=== PATIENT | male | born 1995 | race Caucasian/White ===

== ENCOUNTER 2021-11-30 00:23 | Emergency (ER) | payer BC ==
[2021-11-30 01:20] LABS: Basophil (Absolute #) 0.06 x10^3/uL (0-0.4); Eosinophil (Absolute #) 0.13 x10^3/uL (0-0.5); Hematocrit 41.8 % (42-50); Hemoglobin 13.9 g/dL (12.5-18.0); Lymphocyte (Absolute #) 1.67 x10^3/uL (1.0-4.6); Lymphocytes % 12.4 % (24.0-44.0); Mean Cell Volume 87.3 fL (78-100); Mean Corpuscular Hgb Concent. 33.3 g/dL (32-36); Mean Platelet Volume 10.6 fL (7.5-11.0); Monocyte (Absolute #) 1.02 x10^3/uL (0.0-1.3); Monocytes % 7.5 % (0.0-12.0); Neutrophil % 77.7 % (36.0-66.0); Platelet Count 201 x10^3/uL (150-450); Red Blood Count 4.79 x10^6/uL (4.1-5.6); Red Cell Distribution Width 12.7 % (11.5-14.0); White Blood Count 13.5 x10^3/uL (4.0-10.5)
[2021-11-30 01:32] LABS: ALBUMIN 3.9 g/dL (3.5-5.0); ALKALINE PHOSPHATASE 77 U/L (38-126); ANION GAP 12.3 MEQ/L (5-15); BLOOD UREA NITROGEN 18 mg/dL (9-20); CHLORIDE 102 mmol/L (98-107); Calcium 8.6 mg/dL (8.4-10.2); Carbon Dioxide 24 mmol/L (22-30); Creatinine 1 1.07 mg/dL (0.66-1.25); EST GLOMERULAR FILTRATION RATE > 60.0 ML/MIN; Glucose 116 mg/dL (74-106); Potassium 3.6 mmol/L (3.5-5.1); SGOT/AST 40 U/L (17-59); SGPT/ALT 46 U/L (0-50); SODIUM 135 mmol/L (137-145); Total Protein 6.9 g/dL (6.3-8.2)
[2021-11-30] MEDS ORDERED: SUBLIMAZE 100 MCG/2 ML IV ONE (01:41)
[2021-11-30] MEDS ORDERED: Zofran 4 MG/2 ML VIAL IV ONE (01:42)
[2021-11-30] MEDS ORDERED: Zofran 4 MG/2 ML VIAL ONE (02:03)
[2021-11-30] MEDS ORDERED: SUBLIMAZE 100 MCG/2 ML ONE (02:03)
--- NOTE | 2021-11-30 02:26 | ERPHSYRPT ---
- History of Present Illness Source: patient Exam Limitations: no limitations Patient Subjective Stated Complaint: C/O left thigh pain. States he thinks his surgical incision is infected/ C/O fever. Triage Nursing Assessment: Patient ambulated back to ED. Coban wrapping noted to LLE from the knee down. Patient instructed not to remove this until follow-up appointment on Wednesday. A mepilex border dressing noted to left inner thigh. Dressing removed to examine. 4 marj intact to area and incision is well approximated. No drainage noted. Surrounding skin is red, warm, and swollen. Physician History: 25 yo wm s/p vein occlusive procedure by Dr. Rosales on 10/31/21 L thigh presents w increasing edema/erythema/fever x 2-3 days. Pt presented to surgery center yesterday for L lower leg venous stripping and had L superior thigh I/D in surgery before venous stripping of that lower extremity. He is on Keflex at this time. Method of Injury: other (Post surgical) Occurred: other (2-3 days) Quality: constant, aching Severity of Pain-Max: moderate Severity of Pain-Current: moderate Lower Extremities Pain: thigh: left Modifying Factors: Improves With: movement Associated Symptoms: none Allergies/Adverse Reactions: No Known Drug Allergies Allergy (Verified 11/30/21 00:37) Home Medications: Cephalexin Mh 500 mg [Keflex 500 mg] 1 cap PO TID 11/30/21 [History] Hx Tetanus, Diphtheria Vaccination/Date Given: Yes Hx Influenza Vaccination/Date Given: No Hx Pneumococcal Vaccination/Date Given: No Immunizations Up to Date: Yes Travel Risk - International Travel Have you traveled outside of the country in past 3 weeks: No - Coronavirus Screening Are you exhibiting any of the following symptoms?: No - Vaccine Status Have you recieved a Covid-19 vaccination: No - Review of Systems Constitutional: No Symptoms, Fever Eyes: No Symptoms Ears, Nose, & Throat: No Symptoms Respiratory: No Symptoms Cardiac: No Symptoms Abdominal/Gastrointestinal: No Symptoms Genitourinary Symptoms: No Symptoms Musculoskeletal: No Symptoms Skin: Cellulitis Neurological: No Symptoms Psychological: No Symptoms Endocrine: No Symptoms Hematologic/Lymphatic: No Symptoms Immunological/Allergic: No Symptoms - Past Medical History Pertinent Past Medical History: Yes Other Medical History: Veric. veins - Past Surgical History Past Surgical History: Yes Other Surgical History: Varic. veins to LLE, I&D to left inner thigh - Social History Smoking Status: Never smoker Exposure to second hand smoke: No Drug Use: none Patient Lives Alone: No Significant Family History: no pertinent family hx - Nursing Vital Signs Nursing Vital Signs: Initial Vital Signs Temperature 101.4 F 11/30/21 00:41 Pulse Rate 90 11/30/21 00:41 Respiratory Rate 17 11/30/21 00:41 Blood Pressure 148/86 11/30/21 00:41 O2 Sat by Pulse Oximetry 97 11/30/21 00:41 Pain Scale Pain Intensity 6 Febrile/Hypertensive - Physical Exam General Appearance: no apparent distress Eyes, Ears, Nose, Throat Exam: normal ENT inspection, TMs normal, pharynx normal, moist mucous membranes Neck Exam: normal inspection, non-tender, supple, full range of motion, No Brudzinski, No Kernig's, No meningismus, No carotid bruit Cardiovascular/Respiratory Exam: normal breath sounds, regular rate/rhythm, heart sounds normal Gastrointestinal/Abdominal Exam: non-tender, soft, no organomegaly Back Exam: normal inspection, normal range of motion Hips Exam: bilateral: non-tender, normal inspection, normal range of motion Legs Exam: left leg: soft tissue tenderness (L medial thigh/marj in place/edema, erythema, and TTP/L calf surgical sites clean, dry, and intact/Good pedal pulses, distal sendation, and capillary return) Knees Exam: bilateral knee: non-tender, normal inspection, normal range of mo tion, no evidence of injury Ankle Exam: bilateral ankle: non-tender, normal inspection, normal range of motion Foot Exam: bilateral foot: non-tender, normal inspection, normal range of motion, no evidence of injury Neuro/Tendon Exam: normal sensation, normal motor functions, normal tendon functions, responds to pain, no evidence tendon injury, motor deficit, withdraws to pain, No sensory deficit, No no response to pain Mental Status Exam: alert, oriented x 3, cooperative Skin Exam: other (Cellulitis L nedial thigh) SpO2 Interpretation: normal SpO2: 97 - Course Nursing assessment & vital signs reviewed: Yes - Radiology Ultrasound Exam Venous Lower Extremity Ultrasound: Other (LLE neg for DVT/Lymph nodes L groin) Ordered Tests: Medication Summary Discontinued Medications Generic Name Dose Route Start Last Admin Trade Name Freq PRN Reason Stop Dose Admin Hydrocodone Bitart/Acetaminophen 1 tablet 11/30/21 03:33 11/30/21 04:17 Hydrocodone/Acetamin 10-325 Mg Tablet PO 11/30/21 03:34 1 tablet STAT ONE Administration Doxycycline Hyclate 100 mg 11/30/21 03:20 11/30/21 03:23 Doxycycline Hyclate 100 Mg Tablet PO 11/30/21 03:21 100 mg STAT ONE Administration Doxycycline Hyclate Confirm 11/30/21 03:22 Doxycycline Hyclate 100 Mg Tablet Administered 11/30/21 03:23 Dose 100 mg .ROUTE .STK-MED ONE Fentanyl Citrate 100 mcg 11/30/21 01:41 11/30/21 02:13 Fentanyl Citrate 100 Mcg/2 Ml* Vial IV 11/30/21 01:42 100 mcg STAT ONE Administration Fentanyl Citrate Confirm 11/30/21 02:03 Fentanyl Citrate 100 Mcg/2 Ml* Vial Administered 11/30/21 02:04 Dose 100 mcg .ROUTE .STK-MED ONE Vancomycin HCl Confirm 11/30/21 02:49 Vancomycin 1 Gram/200 Ml Bag Administered 11/30/21 02:50 Dose 1 gm in 200 mls @ ud IV .STK-MED ONE Vancomycin HCl 1 gm in 200 mls @ 125 mls/hr 11/30/21 02:49 11/30/21 04:39 Vancomycin 1 Gram/200 Ml Bag IV 11/30/21 04:24 Infused ONCE ONE Infusion Ondansetron HCl 4 mg 11/30/21 01:42 11/30/21 02:13 Ondansetron Hcl 4 Mg/2 Ml Vial IV 11/30/21 01:43 4 mg STAT ONE Administration Ondansetron HCl Confirm 11/30/21 02:03 Ondansetron Hcl 4 Mg/2 Ml Vial Administered 11/30/21 02:04 Dose 4 mg .ROUTE .STK-MED ONE Lab/Rad Data: Laboratory Result Diagrams 11/30/21 01:18 11/30/21 01:18 Laboratory Results 11/30/21 11/30/21 11/30/21 Range/Units 01:35 01:18 01:18 WBC 13.5 H (4.0-10.5) x10^3/uL RBC 4.79 (4.1-5.6) x10^6/uL Hgb 13.9 (12.5-18.0) g/dL Hct 41.8 L (42-50) % MCV 87.3 (78-100) fL MCH 29.0 (26-32) pg MCHC 33.3 (32-36) g/dL RDW 12.7 (11.5-14.0) % Plt Count 201 (150-450) x10^3/uL MPV 10.6 (7.5-11.0) fL Gran % 77.7 H (36.0-66.0) % Immature Gran % (Auto) 1.0 H (0.00-0.4) % Nucleat RBC Rel Count 0.0 (0.00-0.1) % Eos # (Auto) 0.13 (0-0.5) x10^3/uL Immature Gran # (Auto) 0.14 H (0.00-0.03) x10^3u/L Absolute Lymphs (auto) 1.67 (1.0-4.6) x10^3/uL Absolute Monos (auto) 1.02 (0.0-1.3) x10^3/uL Absolute Nucleated RBC 0.00 (0.00-0.01) x10^3u/L Lymphocytes % 12.4 L (24.0-44.0) % Monocytes % 7.5 (0.0-12.0) % Eosinophils % 1.0 (0.00-5.0) % Basophils % 0.4 (0.0-0.4) % Absolute Granulocytes 10.50 H (1.4-6.9) x10^3/uL Basophils # 0.06 (0-0.4) x10^3/uL Sodium 135 L (137-145) mmol/L Potassium 3.6 (3.5-5.1) mmol/L Chloride 102 (98-107) mmol/L Carbon Dioxide 24 (22-30) mmol/L Anion Gap 12.3 (5-15) MEQ/L BUN 18 (9-20) mg/dL Creatinine 1.07 (0.66-1.25) mg/dL Estimated GFR > 60.0 ML/MIN Glucose 116 H (74-106) mg/dL Lactic Acid 0.8 (0.4-2.0) Calcium 8.6 (8.4-10.2) mg/dL Total Bilirubin 0.40 (0.2-1.3) mg/dL AST 40 (17-59) U/L ALT 46 (0-50) U/L Alkaline Phosphatase 77 (38-126) U/L Serum Total Protein 6.9 (6.3-8.2) g/dL Albumin 3.9 (3.5-5.0) g/dL - Progress Progress Note: 11/30/21 03:[address] Rosales x2 Blood culture x1 Vancomycin 1gm IV x1 Spoke to Dr. Ferreira about admit, wants pt to be transferred where Dr. Rosalse practices Pt refuses transfer to [facility] where Dr. 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 He wants to be discharged at this time and will go to [facility] if he gets worse. Pt understands the risk that he will need to be hospitalized tomorrow and that cellulitis could get worse with possible risk of sepsis. 100mg po Doxycycline 12/03/21 07:27 Counseled pt/family regarding: lab results, diagnosis, need for follow-up, rad results - Departure Departure Disposition: Home Clinical Impression: Cellulitis Condition: Stable Critical Care Time: No Referrals: MELISSA NAIR [Primary Care Provider] - Follow up/PCP as directed Instructions: Wound Care (DC), Cellulitis (Skin Infection), Adult ED Additional Instructions: Continue with Keflex and continue with Doxycycline If redness, swelling, or pain gets worse, go to [facility] Prescriptions: Hydrocodone/Acetaminophen [Hydrocodone-Acetamin 5-325 mg] 1 tab PO Q6HPRN PRN #8 tablet MDD 4 PRN Reason: Pain
[2021-11-30] MEDS ORDERED: VANCOMYCIN 1 GRAM/200 ML BAG 1 GM/200 ML PIGGYBACK IV ONE ×2 (02:49)
[2021-11-30] MEDS ORDERED: Vibramycin 100 MG PO ONE (03:20)
[2021-11-30] MEDS ORDERED: Vibramycin 100 MG ONE (03:22)
[2021-11-30 03:28] VITALS: O2SAT 97
[2021-11-30] MEDS ORDERED: HYDROCODONE-ACETAMIN 10-325 MG PO ONE (03:33)
[2021-11-30 04:42] VITALS: BP 120/70; PULSE 80
--- NOTE | 2021-11-30 07:19 | XRAY ---
Indication: Left leg pain. Two-dimensional sonogram and color Doppler imaging of the major venous vessels of the left leg performed. Comparison: None No thrombus seen in the examined deep venous vessels of the left leg including greater saphenous vein. Veins demonstrate normal compressibility. Venous waveforms are normal with and without augmentation. Groin demonstrates 1.5 x 0.6 cm benign appearing lymph node. Impression: Left leg negative for DVT. Comment: Preliminary report given.
--- NOTE | 2021-11-30 07:19 | XRAY ---
Indication: Erythema and swelling around incision. Targeted soft tissue ultrasound medial left thigh demonstrates mild subcutaneous soft tissue edema. No focal solid/cystic mass, lymphadenopathy, or abnormal fluid collection. Comment: Preliminary report was given.
== END 2021-11-30 04:43 | disposition home or self-care (01) ==
LOC: ED 00:23
DX: L03.116 Cellulitis of left lower limb (principal); L76.82 Other postprocedural complications of skin and subcutaneous tissue; M79.605 Pain in left leg; Z28.310 Unvaccinated for COVID-19
CPT/HCPCS: 36000; 36415; 76881; 80053; 83605; 85025; 87040; 93971; 96365; 96372; 96374; 99284; J2405; J3010; A9270-GY; J3370

== ENCOUNTER 2023-05-07 13:00 | Emergency (ER) | payer BC ==
[2023-05-07 13:07] VITALS: TEMP 97.4
--- NOTE | 2023-05-07 13:10 | ERPHSYRPT ---
- History of Present Illness Time Seen by Provider: 05/07/23 13:10 Historian: patient, family Exam Limitations: no limitations Patient Subjective Stated Complaint: Pt c/o o intermittant chest pain that began today Triage Nursing Assessment: Pt brought self to the ER, hypertensive, rates pain as 1-2/10 in his left chest, pulses normal, skin n/w/d, denies N&V, no difficulty breathing, walked into the ER room with no difficulties, doesn't appear to be in any distress Physician History: This is a 27-year-old overweight white male patient who himself has no documented history of coronary disease but there is a strong family history of it. While [place] [employer], he noticed intermittent left lateral upper chest achiness that was without radiation. Patient takes no prescription medications chronically, however, he does try to take fish oil with every meal because he was told at one time he had elevated cholesterol. Patient does not smoke. He denies shortness of breath. He has not had fevers, chills or cough. He has no abdominal pain. At the time of my examination, patient states he has no chest pain whatsoever. Patient did take a full baby aspirin prior to arrival when he noticed the chest pain as described above. Timing/Duration: today Activities at Onset: activity Quality: aching Location: other (Left anterior upper outer chest wall) Chest Pain Radiation: no radiation Severity of Pain-Max: mild (To moderate) Severity of Pain-Current: none Modifying Factors: Improves With: nothing Associated Symptoms: denies symptoms Prior Chest Pain/Cardiac Workup: no prior chest pain Nitro Today/Relief: no nitro taken today Aspirin Treatment Today: 81 mg x 4, provided at home Allergies/Adverse Reactions: No Known Drug Allergies Allergy (Verified 05/07/23 13:07) Home Medications: No Reportable Medications [No Reported Medications] 05/07/23 [History] Hx Tetanus, Diphtheria Vaccination/Date Given: Yes Hx Influenza Vaccination/Date Given: No Hx Pneumococcal Vaccination/Date Given: No Travel Risk - International Travel Have you traveled outside of the country in past 3 weeks: No - Coronavirus Screening Are you exhibiting any of the following symptoms?: No Close contact with a COVID-19 positive Pt in past 14-21 Days: No - Vaccine Status Have you recieved a Covid-19 vaccination: No - Review of Systems Constitutional: No Symptoms Eyes: No Symptoms Ears, Nose, & Throat: No Symptoms Respiratory: No Symptoms Cardiac: Chest Pain (Completely resolved at the time of this examination) Abdominal/Gastrointestinal: No Symptoms Genitourinary Symptoms: No Symptoms Musculoskeletal: No Symptoms Skin: No Symptoms Neurological: No Symptoms Psychological: No Symptoms Endocrine: No Symptoms Hematologic/Lymphatic: No Symptoms Immunological/Allergic: No Symptoms All Other Systems: Reviewed and Negative - Past Medical History Pertinent Past Medical History: Yes Other Medical History: Veric. veins - Past Surgical History Past Surgical History: Yes Other Surgical History: Varic. veins to LLE, I&D to left inner thigh - Social History Smoking Status: Never smoker Exposure to second hand smoke: No Drug Use: none Patient Lives Alone: No Significant Family History: no pertinent family hx - Nursing Vital Signs Nursing Vital Signs: Initial Vital Signs Temperature 97.4 F 05/07/23 13:01 Pulse Rate 93 H 05/07/23 13:01 Respiratory Rate 25 H 05/07/23 13:01 Blood Pressure 146/103 05/07/23 13:01 O2 Sat by Pulse Oximetry 96 05/07/23 13:01 Pain Scale Pain Intensity 2 - Physical Exam General Appearance: no apparent distress, alert, anxiety, obese Eye Exam: PERRL/EOMI, eyes nml inspection Ears, Nose, Throat Exam: normal ENT inspection, moist mucous membranes Neck Exam: normal inspection, non-tender, supple, full range of motion Respiratory Exam: normal breath sounds, lungs clear, airway intact, No chest tenderness, No respiratory distress Cardiovascular Exam: regular rate/rhythm, normal heart sounds, normal peripheral pulses Gastrointestinal/Abdomen Exam: soft, normal bowel sounds, No tenderness Rectal Exam: not done Back Exam: normal inspection, normal range of motion, No CVA tenderness, No vertebral tenderness Extremity Exam: normal inspection, normal range of motion, pelvis stable Neurologic Exam: alert, oriented x 3, cooperative, furniture restorer II-XII nml as tested, normal mood/affect, nml cerebellar function, nml station & gait, sensation nml Skin Exam: normal color, warm, dry Lymphatic Exam: No adenopathy SpO2 Interpretation: normal SpO2: 96 O2 Delivery: Room Air - Course Nursing assessment & vital signs reviewed: Yes EKG Interpreted by Me: RATE (95), Sinus Rhythm, NORMAL AXIS, NORMAL INTERVALS, NORMAL QRS, NORMAL ST-T (No acute ischemic changes on today's twelve-lead EKG), Other Ordered Tests: Active Orders 24 hr Category Date Time Status Corporate Travel Agent STAT Care 05/07/23 13:12 Active EKG-ER Only STAT Care 05/07/23 13:12 Active CBC W DIFF Stat Lab 05/07/23 13:25 Completed CMP Stat Lab 05/07/23 13:25 Completed D-DIMER QUANTITATIVE Stat Lab 05/07/23 13:25 Completed TROPONIN Q4H Lab 05/07/23 13:25 Completed TROPONIN Q4H Lab 05/07/23 17:15 Ordered TROPONIN Q4H Lab 05/07/23 21:15 Ordered Medication Summary Discontinued Medications Generic Name Dose Route Start Last Admin Trade Name Freq PRN Reason Stop Dose Admin Aspirin 324 mg 05/07/23 13:12 05/07/23 13:15 Aspirin 81 Mg Tab.Chew PO 05/07/23 13:13 Not Given STAT ONE Lab/Rad Data: Laboratory Result Diagrams 05/07/23 13:25 05/07/23 13:25 Laboratory Results 05/07/23 05/07/23 05/07/23 Range/Units 13:25 13:25 13:25 WBC (4.0-10.5) x10^3/uL RBC (4.1-5.6) x10^6/uL Hgb (12.5-18.0) g/dL Hct (42-50) % MCV (78-100) fL MCH (26-32) pg MCHC (32-36) g/dL RDW (11.5-14.0) % Plt Count (150-450) x10^3/uL MPV (7.5-11.0) fL Gran % (36.0-66.0) % Immature Gran % (Auto) (0.00-0.4) % Nucleat RBC Rel Count (0.00-0.1) % Eos # (Auto) (0-0.5) x10^3/uL Immature Gran # (Auto) (0.00-0.03) x10^3u/L Absolute Lymphs (auto) (1.0-4.6) x10^3/uL Absolute Monos (auto) (0.0-1.3) x10^3/uL Absolute Nucleated RBC (0.00-0.01) x10^3u/L Lymphocytes % (24.0-44.0) % Monocytes % (0.0-12.0) % Eosinophils % (0.00-5.0) % Basophils % (0.0-0.4) % Absolute Granulocytes (1.4-6.9) x10^3/uL Basophils # (0-0.4) x10^3/uL D-Dimer < 0.19 (0.0-0.50) mg/L Sodium 137 (137-145) mmol/L Potassium 3.9 (3.5-5.1) mmol/L Chloride 103 (98-107) mmol/L Carbon Dioxide 26 (22-30) mmol/L Anion Gap 12.4 (5-15) MEQ/L BUN 23 H (9-20) mg/dL Creatinine 1.16 (0.66-1.25) mg/dL Estimated GFR 88.0 ML/MIN Glucose 99 (74-106) mg/dL Calcium 9.1 (8.4-10.2) mg/dL Total Bilirubin 0.70 (0.2-1.3) mg/dL AST 67 H (17-59) U/L ALT 113 H (0-50) U/L Alkaline Phosphatase 73 (38-126) U/L Troponin I < 0.012 (0.000-0.034) ng/mL Serum Total Protein 7.8 (6.3-8.2) g/dL Albumin 4.6 (3.5-5.0) g/dL 05/07/23 Range/Units 13:25 WBC 7.8 (4.0-10.5) x10^3/uL RBC 5.66 H (4.1-5.6) x10^6/uL Hgb 16.4 (12.5-18.0) g/dL Hct 47.8 (42-50) % MCV 84.5 (78-100) fL MCH 29.0 (26-32) pg MCHC 34.3 (32-36) g/dL RDW 12.4 (11.5-14.0) % Plt Count 220 (150-450) x10^3/uL MPV 11.2 H (7.5-11.0) fL Gran % 63.8 (36.0-66.0) % Immature Gran % (Auto) 0.5 H (0.00-0.4) % Nucleat RBC Rel Count 0.0 (0.00-0.1) % Eos # (Auto) 0.11 (0-0.5) x10^3/uL Immature Gran # (Auto) 0.04 H (0.00-0.03) x10^3u/L Absolute Lymphs (auto) 2.12 (1.0-4.6) x10^3/uL Absolute Monos (auto) 0.50 (0.0-1.3) x10^3/uL Absolute Nucleated RBC 0.00 (0.00-0.01) x10^3u/L Lymphocytes % 27.1 (24.0-44.0) % Monocytes % 6.4 (0.0-12.0) % Eosinophils % 1.4 (0.00-5.0) % Basophils % 0.8 (0.0-0.4) % Absolute Granulocytes 5.00 (1.4-6.9) x10^3/uL Basophils # 0.06 (0-0.4) x10^3/uL D-Dimer (0.0-0.50) mg/L Sodium (137-145) mmol/L Potassium (3.5-5.1) mmol/L Chloride (98-107) mmol/L Carbon Dioxide (22-30) mmol/L Anion Gap (5-15) MEQ/L BUN (9-20) mg/dL Creatinine (0.66-1.25) mg/dL Estimated GFR ML/MIN Glucose (74-106) mg/dL Calcium (8.4-10.2) mg/dL Total Bilirubin (0.2-1.3) mg/dL AST (17-59) U/L ALT (0-50) U/L Alkaline Phosphatase (38-126) U/L Troponin I (0.000-0.034) ng/mL Serum Total Protein (6.3-8.2) g/dL Albumin (3.5-5.0) g/dL - Progress Progress: improved Air Movement: good Progress Note: 05/07/23 14:17 This patient's medical issue is 1 of moderate complexity. Level complex in the workup performed is based on review of the patient's past medical history, shayne w the patient's medication list, review of the patient's drug allergy list, history present illness and physical findings on examination. The workup in this patient includes twelve-lead EKG, CBC, CMP, D-dimer level, troponin level. I reviewed and interpreted the patient's twelve-lead EKG and laboratory data results. There are no acute, emergent findings on patient's laboratory studies or twelve-lead EKG today. Patient heart score is low. There is low suspicion that patient has a cardiac issue. Patient will be discharged to home. Blood Culture(s) Obtained: No Antibiotics given: No Counseled pt/family regarding: lab results, diagnosis, need for follow-up Medical Desision Making - Diagnostic Testing Diagnostic test were ordered, analyzed, and reviewed by me: Yes - Risk of complications Minimal Risk: Minimal risk of morbidity - Departure Departure Disposition: Home Clinical Impression: Nonspecific chest pain Condition: Stable Critical Care Time: No Referrals: MELISSA NAIR [COURTESY STAFF] - Follow up/PCP as directed Additional Instructions: Take your medications of aspirin and fish oil capsules as you have been doing. Call your primary care provider today to make arranges for follow-up appointment for further evaluation management.
[2023-05-07] MEDS ORDERED: BABY ASPIRIN 81 MG CHEW PO ONE (13:12)
[2023-05-07 13:27] LABS: BASOPHIL % 0.8 % (0.0-0.4); Basophil (Absolute #) 0.06 x10^3/uL (0-0.4); Eosinophil % 1.4 % (0.00-5.0); Eosinophil (Absolute #) 0.11 x10^3/uL (0-0.5); Hematocrit 47.8 % (42-50); Hemoglobin 16.4 g/dL (12.5-18.0); IMMATURE GRAN # 0.04 x10^3u/L (0.00-0.03); IMMATURE GRAN % 0.5 % (0.00-0.4); Lymphocyte (Absolute #) 2.12 x10^3/uL (1.0-4.6); Lymphocytes % 27.1 % (24.0-44.0); Mean Cell Volume 84.5 fL (78-100); Mean Corpuscular Hgb Concent. 34.3 g/dL (32-36); Mean Platelet Volume 11.2 fL (7.5-11.0); Monocytes % 6.4 % (0.0-12.0); Neutrophil % 63.8 % (36.0-66.0); Platelet Count 220 x10^3/uL (150-450); Red Blood Count 5.66 x10^6/uL (4.1-5.6); Red Cell Distribution Width 12.4 % (11.5-14.0); White Blood Count 7.8 x10^3/uL (4.0-10.5)
[2023-05-07 13:42] LABS: ALBUMIN 4.6 g/dL (3.5-5.0); ANION GAP 12.4 MEQ/L (5-15); BILIRUBIN,TOTAL 0.7 mg/dL (0.2-1.3); Calcium 9.1 mg/dL (8.4-10.2); Creatinine 1 1.16 mg/dL (0.66-1.25); Potassium 3.9 mmol/L (3.5-5.1); Total Protein 7.8 g/dL (6.3-8.2)
[2023-05-07 14:03] VITALS: BP 126/88; PULSE 82; RESP 14
[2023-05-07 14:19] VITALS: O2SAT 96
== END 2023-05-07 14:28 | disposition home or self-care (01) ==
LOC: ED 13:00
DX: R07.9 Chest pain, unspecified (principal); Z28.310 Unvaccinated for COVID-19
CPT/HCPCS: 36415; 80053; 84484; 85025; 85379; 93005; 93041; 99283

== ENCOUNTER 2023-12-03 21:51 | Emergency (ER) | payer BC ==
[2023-12-03 22:07] VITALS: RESP 18; TEMP 97.6
--- NOTE | 2023-12-03 22:11 | ERPHSYRPT ---
- History of Present Illness Time Seen by Provider: 12/03/23 22:11 Source: patient, family Exam Limitations: no limitations Patient Subjective Stated Complaint: pt states that he has pain to his rt foot and last 3 digits Triage Nursing Assessment: pt ambulated into the er; pt is axo x4; c/o rt foot pain; pt states 10/10 pain to rt foot; pt states pain to 3rd, 4th, 5th digits; no bruising or deformity to rt foot; strong rt pedal pulse; no swelling present to rt foot; skin PDW; no respiratory distress present; vitals wnl Physician History: This is a 27-year-old overweight white male patient who has done a lot of [place] since Wednesday prior to this evaluation. Throughout the week he has had intermittent pain in the right foot when ambulating. He describes that it is intermittent aching and throbbing. Today, the pain became more constant. Patient does not recall any specific injury only that he has increased his walking this week. Patient has no known drug allergies and takes no medications chronically. The pain is on the dorsal aspect of his right foot primarily digits 3 4 and 5 when he is ambulating. Method of Injury: unknown Occurred: other Quality: constant (Past week), aching, throbbing Severity of Pain-Max: moderate Severity of Pain-Current: moderate Lower Extremities Pain: foot: right Modifying Factors: Improves With: movement Associated Symptoms: none Allergies/Adverse Reactions: No Known Drug Allergies Allergy (Verified 05/07/23 13:07) Home Medications: No Reportable Medications [No Reported Medications] 05/07/23 [History] Hx Tetanus, Diphtheria Vaccination/Date Given: No (unsure) Hx Influenza Vaccination/Date Given: No Hx Pneumococcal Vaccination/Date Given: No Travel Risk - International Travel Have you traveled outside of the country in past 3 weeks: No - Emerging Infectious Disease Are you exhibiting symptoms associated with any current EIDs: No - Review of Systems Constitutional: No Symptoms Eyes: No Symptoms Ears, Nose, & Throat: No Symptoms Respiratory: No Symptoms Cardiac: No Symptoms Abdominal/Gastrointestinal: No Symptoms Genitourinary Symptoms: No Symptoms Musculoskeletal: Other (Right foot pain when ambulating) Skin: No Symptoms Neurological: No Symptoms Psychological: No Symptoms Endocrine: No Symptoms Hematologic/Lymphatic: No Symptoms Immunological/Allergic: No Symptoms All Other Systems: Reviewed and Negative - Past Medical History Pertinent Past Medical History: Yes Other Medical History: Veric. veins - Past Surgical History Past Surgical History: Yes Other Surgical History: Varic. veins to LLE, I&D to left inner thigh Significant Family History: no pertinent family hx - Social History Smoking Status: Never smoker Exposure to second hand smoke: No Drug Use: none Patient Lives Alone: No - Social Determinants of Health Will the patient participate in the screening: Yes Do you worry about a steady place to live?: No Do you have any problems with any of the following?: No known problems In the past 12 months,have you had to go without utilities?: No Transportation Issues: No Has anyone in your support network made you feel unsafe?: No Have you or anyone in your house had to go without enough: No - Nursing Vital Signs Nursing Vital Signs: Initial Vital Signs Temperature 97.6 F 12/03/23 21:58 Pulse Rate 101 H 12/03/23 21:58 Respiratory Rate 18 12/03/23 21:58 Blood Pressure 147/92 12/03/23 21:58 O2 Sat by Pulse Oximetry 97 12/03/23 21:58 Pain Scale Pain Intensity 10 - Physical Exam General Appearance: no apparent distress, alert, anxiety Eyes, Ears, Nose, Throat Exam: normal ENT inspection, moist mucous membranes Neck Exam: normal inspection, non-tender, supple, full range of motion Cardiovascular/Respiratory Exam: chest non-tender, no respiratory distress Gastrointestinal/Abdominal Exam: non-tender Back Exam: normal inspection, normal range of motion, No CVA tenderness, No vertebral tenderness Hips Exam: bilateral: non-tender, normal inspection, normal range of motion, no evidence of injury Legs Exam: bilateral leg: non-tender, normal inspection, normal range of motion, no evidence of injury Knees Exam: bilateral knee: non-tender, normal inspection, normal range of motion, no evidence of injury Ankle Exam: bilateral ankle: non-tender, normal inspection, normal range of motion, no evidence of injury Foot Exam: right foot: non-tender, left foot: bone tenderness, soft tissue tenderness, bilateral foot: normal inspection, normal range of motion, no evidence of injury Neuro/Tendon Exam: normal sensation, normal motor functions, normal tendon functions, responds to pain, no evidence tendon injury Mental Status Exam: alert, oriented x 3, cooperative Skin Exam: normal color, warm, dry SpO2 Interpretation: normal SpO2: 97 O2 Delivery: Room Air - Course Nursing assessment & vital signs reviewed: Yes Ordered Tests: Active Orders 24 hr Category Date Time Status FOOT (MINIMUM 3 VIEWS) Stat Exams 12/03/23 21:57 Taken - Progress Progress: unchanged, pain not gone completely Progress Note: 12/03/23 22:56 My medical decision making and the assignment of low complexity to this patient's medical issue today is based on review of the patient's past medical history, review the patient's medication list, review of patient drug allergy list, history of present illness and physical findings on examination. The workup in this patient includes x-ray of the right foot. I interpreted the preliminary report of this patient's right foot x-ray. I do not appreciate an acute fracture or dislocation. Patient is aware that the there will be a final read by the radiologist and it may differ from my interpretation. He will be notified if this is the case. Counseled pt/family regarding: diagnosis, need for follow-up, rad results Medical Desision Making - Diagnostic Testing Diagnostic test were ordered, analyzed, and reviewed by me: Yes Radiological Interpretation: Interpreted by me - Risk of complications Low Risk: Low risk of morbidity from additional dx testing or treatment - Departure Departure Disposition: Home Clinical Impression: Right foot pain Condition: Stable Critical Care Time: No Referrals: GABE GONZALEZ PA [Primary Care Provider] - Follow up/PCP as directed Additional Instructions: Soak the right foot in ice water 4-5 times a day for the next 48 hours. After you use your Percocet take-home packet, you may use Tylenol and ibuprofen for pain control if there are no contraindications to do so. If after 48 to 72 hours the pain in your right foot has not improved, follow-up with senior telecommunications consultant Dr. Espinal at our hospital or [facility]. You will need to call Dr. Espinal's office to make an appointment. The [facility] orthopedic clinic is a walk-in clinic and is open Wednesday through Wednesday 8 AM to 10 AM. You do not need an appointment.
[2023-12-03] MEDS ORDERED: PERCOCET TABLET 5/325MG ONE (22:57)
[2023-12-03] MEDS: PERCOCET TABLET 5/325MG PO STA (22:58)
[2023-12-03 23:02] VITALS: BP 151/84; PULSE 92; O2SAT 96
--- NOTE | 2023-12-04 05:44 | XRAY ---
Indication: Pain and numbness. Comparison: None 3 nonweightbearing views right foot demonstrates normal bones, articulation, and soft tissues.
== END 2023-12-03 23:06 | disposition home or self-care (01) ==
LOC: ED 21:51
DX: M79.671 Pain in right foot (principal)
CPT/HCPCS: 73630; 99282; A9270-GY